=== PATIENT | male | born 1975 | race Asian ===

== ENCOUNTER 2024-05-23 16:30 | Outpatient (CLI) | payer OTHER | END 2024-05-23 23:59 | disposition home or self-care (01) | LOC: MRI02 16:30 | PROVIDERS: ATTEND Surgery | DX: M50.122 Cervical disc disorder at C5-C6 level with radiculopathy (principal); M48.02 Spinal stenosis, cervical region; M25.78 Osteophyte, vertebrae | CPT/HCPCS: 72141 ==